=== PATIENT | female | born 1945 | race American Indian/Alaskan Native ===

== ENCOUNTER 2018-12-13 21:58 | Inpatient (IN) | payer MEDICARE ==
[2018-12-13 23:55] LABS: Basophils # (Auto) 0.1 K/mm3 (0.0-0.1); Basophils % (Auto) 0.7 % (0.0-1.8); Eosinophils % (Auto) 0.4 % (0.0-4.3); Hematocrit 43.2 % (30.3-42.9); Hemoglobin 13.8 gm/dl (10.1-14.3); Lymphocytes # (Auto) 1.7 K/mm3 (1.2-5.4); Lymphocytes % (Auto) 18.8 % (13.4-35.0); Mean Corpuscular HGB Conc 32 % (30-34); Mean Corpuscular Volume 84 fl (79-97); Monocytes # (Auto) 0.7 K/mm3 (0.0-0.8); Monocytes % (Auto) 7.7 % (0.0-7.3); Platelet Count 272 K/mm3 (140-440); Red Blood Count 5.18 M/mm3 (3.65-5.03); Red Cell Distribution Width 16.9 % (13.2-15.2)
[2018-12-14 00:10] LABS: BUN/Creatinine Ratio 13; Blood Urea Nitrogen 14 mg/dL (7-17); Hemolysis Index 15
[2018-12-14] MEDS ORDERED: NITROSTAT SL PRN (01:16)
[2018-12-14] MEDS ORDERED: ASPIRIN PO ONE (01:16)
[2018-12-14] MEDS ORDERED: CATAPRES PO ONE (01:16)
--- NOTE | 2018-12-14 02:47 | XRay Report ---
PROCEDURE: XR CHEST 1V AP TECHNIQUE: Chest radiograph single view. HISTORY: chest pain COMPARISONS: None . FINDINGS: Heart: Normal. Mediastinum/Vessels: Normal. Lungs/Pleural space: Normal. Bony thorax: No acute osseous abnormality. Life support devices: None. IMPRESSION: No acute cardiopulmonary abnormality. This document is electronically signed by Juan R Berry MD., Dec 14 2018 02:45:23 AM ET
--- NOTE | 2018-12-14 03:18 | Emergency Department Report ---
ED Chest Pain HPI - General Chief Complaint: Dizziness Stated Complaint: BLOOD PRESSURE HIGH Time Seen by Provider: 12/14/18 01:08 Source: patient Mode of arrival: Ambulatory Limitations: No Limitations - History of Present Illness Initial Comments: Patient is a 73-year-old [place] female past medical history of hypertension and diabetes who's complaining of chest discomfort. Patient states that late yesterday she began having some chest pressure is worse when she is exerting herself. She has some shortness of breath and dizziness associated with the chest pressure. States it does come and go. Patient states she had a stress test earlier this year but has no stents and she has never had a cardiac cath. Patient's sugar blood pressure was elevated and she asked for her to bring her to the hospital. - Related Data Home Medications Medication Instructions Recorded Confirmed Last Taken Verapamil HCl 360 tab PO DAILY 10/08/14 06/23/18 08/31/15 Aspirin 81 mg PO DAILY 06/23/18 06/23/18 Unknown Benicar HCT 40-12.5 mg 1 tab PO DAILY 06/23/18 06/23/18 Unknown Ondansetron TAB 4 mg PO Q8H PRN 06/23/18 06/23/18 Unknown Sitagliptin Phosphate [Januvia] 50 mg PO DAILY 06/23/18 06/23/18 Unknown Zonisamide 100 mg PO BID 06/23/18 06/23/18 Unknown Previous Rx's Medication Instructions Recorded Last Taken Type levETIRAcetam [Keppra TAB] 1,000 mg PO BID #60 tablet NS 04/04/14 08/31/15 Rx AtorvaSTATin [Lipitor] 20 mg PO QHS #30 tablet 06/25/18 Unknown Rx clonazePAM [KlonoPIN] 0.5 mg PO TID #90 tablet 06/25/18 Unknown Rx Allergies Allergy/AdvReac Type Severity Reaction Status Date / Time acetaminophen [From Tylenol] Allergy Unknown Verified 08/31/15 19:31 codeine Allergy Unknown Verified 08/31/15 19:31 metronidazole Allergy Unknown Verified 08/31/15 19:31 Penicillins Allergy Unknown Verified 08/31/15 19:31 Heart Score - HEART Score History: Moderately suspicious EKG: Non-specific Age: > 65 Risk factors: 1-2 risk factors Troponin: < normal limit HEART Score: 5 ED Review of Systems ROS: Stated complaint: BLOOD PRESSURE HIGH Other details as noted in HPI Comment: All other systems reviewed and negative ED Past Medical Hx - Past Medical History Hx Hypertension: Yes Hx Diabetes: Yes Hx Seizures: Yes Hx Asthma: No Hx COPD: No Hx HIV: No Additional medical history: vagus nerve stimulator. Hearing impaired - Surgical History Additional Surgical History: tubal ligation. Craniotomy - Social History Smoking Status: Never Smoker Substance Use Type: None - Medications Home Medications: Home Medications Medication Instructions Recorded Confirmed Last Taken Type levETIRAcetam [Keppra TAB] 1,000 mg PO BID #60 tablet NS 04/04/14 06/23/18 08/31/15 Rx Verapamil HCl 360 tab PO DAILY 10/08/14 06/23/18 08/31/15 History Aspirin 81 mg PO DAILY 06/23/18 06/23/18 Unknown History Benicar HCT 40-12.5 mg 1 tab PO DAILY 06/23/18 06/23/18 Unknown History Ondansetron TAB 4 mg PO Q8H PRN 06/23/18 06/23/18 Unknown History Sitagliptin Phosphate [Januvia] 50 mg PO DAILY 06/23/18 06/23/18 Unknown History Zonisamide 100 mg PO BID 06/23/18 06/23/18 Unknown History AtorvaSTATin [Lipitor] 20 mg PO QHS #30 tablet 06/25/18 Unknown Rx clonazePAM [KlonoPIN] 0.5 mg PO TID #90 tablet 06/25/18 Unknown Rx ED Physical Exam - General Limitations: No Limitations General appearance: alert, in no apparent distress - Head Head exam: Present: atraumatic, normocephalic - Eye Eye exam: Present: normal appearance - ENT ENT exam: Present: mucous membranes moist - Neck Neck exam: Present: normal inspection - Respiratory Respiratory exam: Present: normal lung sounds bilaterally. Absent: respiratory distress, wheezes, rales, rhonchi - Cardiovascular Cardiovascular Exam: Present: regular rate, normal rhythm. Absent: systolic murmur, diastolic murmur, rubs, gallop - GI/Abdominal GI/Abdominal exam: Present: soft, normal bowel sounds. Absent: distended, tenderness, guarding, rebound, rigid - Extremities Exam Extremities exam: Present: normal inspection - Back Exam Back exam: Present: normal inspection - Neurological Exam Neurological exam: Present: alert, oriented X3 - Psychiatric Psychiatric exam: Present: normal affect, normal mood - Skin Skin exam: Present: warm, dry, intact, normal color. Absent: rash ED Course Vital Signs 12/13/18 12/13/18 12/14/18 22:02 22:04 01:28 Temperature 98.5 F 98.5 F 97.9 F Pulse Rate 92 H 91 H 69 Respiratory 18 18 16 Rate Blood Pressure 194/105 166/87 Blood Pressure 194/105 [Left] O2 Sat by Pulse 98 98 100 Oximetry 12/14/18 12/14/18 12/14/18 01:31 02:00 02:31 Temperature Pulse Rate 64 62 60 Respiratory 19 18 20 Rate Blood Pressure 166/87 144/77 144/77 Blood Pressure [Left] O2 Sat by Pulse 100 98 98 Oximetry ED Medical Decision Making - Lab Data Result diagrams: 12/13/18 23:25 12/13/18 23:25 Labs 12/13/18 12/13/18 23:25 23:25 WBC 8.9 RBC 5.18 H Hgb 13.8 Hct 43.2 H MCV 84 MCH 27 L MCHC 32 RDW 16.9 H Plt Count 272 Lymph % (Auto) 18.8 [place] % (Auto) 7.7 H Eos % (Auto) 0.4 Baso % (Auto) 0.7 Lymph # 1.7 [place] # 0.7 Eos # 0.0 Baso # 0.1 Seg Neutrophils % 72.4 H Seg Neutrophils # 6.5 Sodium 140 Potassium 4.0 Chloride 102.1 Carbon Dioxide 24 Anion Gap 18 BUN 14 Creatinine 1.1 Estimated GFR 59 BUN/Creatinine Ratio 13 Glucose 181 H Calcium 9.0 Troponin T < 0.010 - EKG Data -: EKG Interpreted by Sc EKG shows normal: sinus rhythm, axis, intervals, QRS complexes, ST-T waves Rate: normal - EKG Data Interpretation: normal EKG - Radiology Data Radiology results: report reviewed - Medical Decision Making Patient is a 73-year-old [place] female presenting with chest pain. Patient has a elevated blood pressures well. Blood pressure was treated with Catapres and the patient's blood pressure did respond well. At time of admission patient's systolic blood pressure was 150s. Patient's chest pain-free at this time. Patient does have a harsh score 5 and the patient. Will be admitted to the hospitalist Critical Care Time: Yes (30) Critical care attestation.: If time is entered above; I have spent that time in minutes in the direct care of this critically ill patient, excluding procedure time. ED Disposition Clinical Impression: Hypertensive urgency, Chest pain Disposition: OP ADMIT IP TO THIS HOSP Is pt being admited?: Yes Does the pt Need Aspirin: No Condition: Stable Instructions: Chest Pain (ED) Referrals: QUINTIN EM MD [Primary Care Provider] - 3-5 Days Time of Disposition: 03:20
[2018-12-14] MEDS ORDERED: TYLENOL PO PRN (04:00)
[2018-12-14] MEDS ORDERED: PERCOCET 5/325 PO PRN (04:00)
[2018-12-14] MEDS ORDERED: SODIUM CHLORIDE FLUSH SYRINGE 10 ML IV PRN (04:00)
[2018-12-14] MEDS ORDERED: D50W (25GM) Syringe IV PRN (04:00)
[2018-12-14] MEDS ORDERED: ZOFRAN IV PRN (04:00)
--- NOTE | 2018-12-14 04:00 | History and Physical Report ---
History of Present Illness Date of examination: 12/14/18 History of present illness: 73-year-old man with a history of coronary artery disease, diabetes, seizure, close to the emergency room with complaints of chest pain located in the epigastric area that started yesterday. She describes a dull pain, intermitten 2 to 4 minutes, intensity 5/10, radiating to the right side of the neck, cannot identify exacerbating or relieving factors. Denies nausea vomiting, shortness breath, diaphoresis or palpitation Review of systems Constitutional: no weight loss, chills, fever Ears, eyes, nose, mouth and throat: no nasal congestion, no nasal discharge, no sinus pressure, no vision change, no red eye. Neck: No neck pain or rigidity. Cardiovascular: no palpitations, chest pain Respiratory: no cough, shortness of breath Gastrointestinal: no hematochezia, abdominal pain Genitourinary : no frequency , no hematuria Musculoskeletal: no joint swelling or muscle ache Integumentary: no rash, no pruritis Neurological: no parathesias, no focal weakness Endocrine: no cold or heat intolerance, no polyuria or polydipsia Hematologic/Lymphatic: no easy bruising, no easy bleeding, no gland swelling Allergic/Immunologic: no urticaria, no angioedema. PAST MEDICAL HISTORY:coronary artery disease, diabetes, seizure, CVA with right hemiparesis PAST SURGICAL HISTORY: Right leg SOCIAL HISTORY: Denies alcohol, drugs, tobacco FAMILY HISTORY: Hypertension Medications and Allergies Allergies Allergy/AdvReac Type Severity Reaction Status Date / Time acetaminophen [From Tylenol] Allergy Unknown Verified 08/31/15 19:31 codeine Allergy Unknown Verified 08/31/15 19:31 metronidazole Allergy Unknown Verified 08/31/15 19:31 Penicillins Allergy Unknown Verified 08/31/15 19:31 Home Medications Medication Instructions Recorded Confirmed Last Taken Type levETIRAcetam [Keppra TAB] 1,000 mg PO BID #60 tablet NS 04/04/14 12/14/18 08/31/15 Rx Verapamil HCl 360 tab PO DAILY 10/08/14 12/14/18 08/31/15 History Aspirin 81 mg PO DAILY 06/23/18 12/14/18 Unknown History Zonisamide 100 mg PO BID 06/23/18 12/14/18 Unknown History clonazePAM [KlonoPIN] 0.5 mg PO TID #90 tablet 06/25/18 12/14/18 Unknown Rx Citalopram [celeXA] 20 mg PO QDAY 12/14/18 12/14/18 Unknown History Dapagliflozin Propanediol [Farxiga] 1 tab PO DAILY 12/14/18 12/14/18 Unknown History Telmisartan 40 mg PO DAILY 12/14/18 12/14/18 Unknown History Active Meds: Active Medications Nitroglycerin (Nitrostat) 0.4 mg SL .Q5MIN PRN PRN Reason: Chest Pain Exam - Physical Exam Narrative exam: General Apperance: The patient lying in bed, breathing comfortable HEENT: Normocephalic, atraumatic. Pupils equally round and reactive to light, EOMI, no sclericterus or JVD or thyromegaly or nodule. , no carotid bruit, mu cous membranes moist, no exudate or erythema Heart: S1-S2, regular is rhythm Lungs: Clear to auscultation bilaterally, breathing comfortable Abdomen: Positive bowel sounds, soft, nontender, nondistended, no organomegaly Extremities: No edema cyanosis clubbing Skin: no rash, nodule, warm and dry Neuro: cranial nerves 2-12 intact, speech is fluent,sensory intact - Constitutional Vitals: Temp Pulse Resp BP Pulse Ox 97.9 F 60 20 144/77 98 12/14/18 01:28 12/14/18 02:31 12/14/18 02:31 12/14/18 02:31 12/14/18 02:31 Results - Labs CBC & Chem 7: 12/14/18 04:16 12/14/18 04:16 Labs: Abnormal lab results 12/13/18 12/13/18 Range/Units 23:25 23:25 RBC 5.18 H (3.65-5.03) M/mm3 Hct 43.2 H (30.3-42.9) % MCH 27 L (28-32) pg RDW 16.9 H (13.2-15.2) % Barry % (Auto) 7.7 H (0.0-7.3) % Seg Neutrophils % 72.4 H (40.0-70.0) % Glucose 181 H (65-100) mg/dL - Imaging and Cardiology EKG: image reviewed Chest x-ray: report reviewed Assessment and Plan Assessment Unstable angina Coronary artery disease Diabetes Seizure History of CVA Plan Admit to medicine Check enzymes, stress test Continue her present outpatient medications Check fingersticks and initiate insulin sliding scale DVT prophylaxis
[2018-12-14 04:42] LABS: Basophils # (Auto) 0.1 K/mm3 (0.0-0.1); Eosinophils # (Auto) 0.1 K/mm3 (0.0-0.4); Eosinophils % (Auto) 0.6 % (0.0-4.3); Hemoglobin 13.1 gm/dl (10.1-14.3); Lymphocytes # (Auto) 2.2 K/mm3 (1.2-5.4); Lymphocytes % (Auto) 25.7 % (13.4-35.0); Mean Corpuscular HGB Conc 33 % (30-34); Mean Corpuscular Volume 82 fl (79-97); Monocytes # (Auto) 0.8 K/mm3 (0.0-0.8); Platelet Count 250 K/mm3 (140-440); Red Blood Count 4.87 M/mm3 (3.65-5.03); Red Cell Distribution Width 16.9 % (13.2-15.2)
[2018-12-14 04:56] LABS: BUN/Creatinine Ratio 13; Blood Urea Nitrogen 13 mg/dL (7-17); Hemolysis Index 15
[2018-12-14 06:59] LABS: Creatine Kinase MB < 1.0 ng/mL (0.0-4.0)
[2018-12-14] MEDS: HumaLOG SUB-Q SCH ×4 (08:35→21:53)
[2018-12-14] MEDS ORDERED: DAPAGLIFLOZIN PROPANEDIOL PO SCH (10:00)
--- NOTE | 2018-12-14 10:31 | Event Note ---
Date: 12/14/18 73-year-old man with a history of coronary artery disease, diabetes, seizure, close to the emergency room with complaints of chest pain located in the epigastric area that started yesterday. plan for stress test tomorrow.
[2018-12-14] MEDS: CALAN SR PO SCH (10:41)
[2018-12-14] MEDS: COZAAR PO SCH (10:41)
[2018-12-14] MEDS: KEPPRA PO SCH ×2 (10:41→21:53)
[2018-12-14] MEDS: celeXA PO SCH (10:41)
[2018-12-14] MEDS: HALFPRIN EC PO SCH (10:42)
[2018-12-14] MEDS: LOVENOX SUB-Q SCH (10:42)
[2018-12-14 12:47] LABS: Creatine Kinase MB < 1.0 ng/mL (0.0-4.0)
[2018-12-14] MEDS: SODIUM CHLORIDE FLUSH SYRINGE 10 ML IV SCH ×2 (21:54)
[2018-12-15] MEDS: HumaLOG SUB-Q SCH ×2 (08:02→11:48)
[2018-12-15] MEDS: CALAN SR PO SCH (09:30)
[2018-12-15] MEDS: KEPPRA PO SCH (09:31)
[2018-12-15] MEDS: COZAAR PO SCH (09:31)
[2018-12-15] MEDS: HALFPRIN EC PO SCH (09:31)
[2018-12-15] MEDS: LOVENOX SUB-Q SCH (09:31)
[2018-12-15] MEDS: celeXA PO SCH (09:31)
[2018-12-15] MEDS: SODIUM CHLORIDE FLUSH SYRINGE 10 ML IV SCH (09:33)
[2018-12-15] MEDS ORDERED: LEXISCAN IV ONE (11:31)
[2018-12-15 12:34] VITALS: BP 150/78
--- NOTE | 2018-12-15 15:07 | Discharge Summary ---
Providers - Providers Date of Admission: 12/14/18 04:00 Date of discharge: 12/15/18 Attending physician: CINTHYA HERBERT [facility] Reason for admission: chest pain Condition: Stable Pertinent studies: CXR Stress test Hospital course: 73-year-old man with a history of coronary artery disease, diabetes, seizure, presented to the emergency room with complaints of chest pain located in the epigastric area that started a day ago. CE in the ER normal, CXR showed no infiltrates. Stress test today was normal, patient was then discharged home in stable condition. Discharge diagnosis: Chest pain, likely GERD, stress test was normal Coronary artery disease HTN, stable Seizure disorder History of CVA Disposition: TO HOME OR SELFCARE Time spent for discharge: 34 minutes Core Measure Documentation - Palliative Care Palliative Care/ Comfort Measures: Not Applicable - Core Measures Any of the following diagnoses?: none Exam - Constitutional Vitals: Temp Pulse Resp BP Pulse Ox 98.5 F 58 L 19 150/78 98 12/15/18 07:10 12/15/18 11:00 12/15/18 10:00 12/15/18 11:59 12/15/18 10:00 General appearance: Present: no acute distress, other (elderly AAF) - EENT Eyes: Present: PERRL ENT: hearing intact, clear oral mucosa - Neck Neck: Present: supple, normal ROM - Respiratory Respiratory effort: normal Respiratory: bilateral: CTA - Cardiovascular Heart Sounds: Present: S1 & S2. Absent: rub, click - Extremities Extremities: pulses symmetrical, No edema Peripheral Pulses: within normal limits - Abdominal General gastrointestinal: Present: soft, non-tender, non-distended, normal bowel sounds - Integumentary Integumentary: Present: clear, warm, dry - Musculoskeletal Musculoskeletal: gait normal, strength equal bilaterally - Psychiatric Psychiatric: appropriate mood/affect, intact judgment & insight - Neurologic Neurologic: CNII-XII intact, moves all extremities Plan Activity: advance as tolerated Weight Bearing Status: Weight Bear as Tolerated Diet: low fat Follow up with: QUINTIN EM MD [Primary Care Provider] - 3-5 Days ALFREDO GUZMAN MD [Staff Physician] - 7 Days Prescriptions: AtorvaSTATin [Lipitor] 20 mg PO QHS #30 tab Pantoprazole [Protonix] 40 mg PO QDAY #30 tablet
--- NOTE | 2018-12-16 05:55 | Treadmill Report ---
THALLIUM STRESS TEST LEFT VENTRICLE: Left ventricular chamber size is within normal spread. Perfusion study demonstrates mild breast attenuation artifact, otherwise, homogeneous uptake of the tracer in all segments, no significant defects identified. Gated analysis demonstrates normal left ventricular systolic function, ejection fraction of 65%. CONCLUSION: Normal myocardial perfusion study. JOB# [id number] CA/NTS
== END 2018-12-15 16:28 | disposition home or self-care (01) | DRG 392 ==
LOC: ED 21:58 → 4A 12-14 04:00
PROVIDERS: ADMIT Internal Medicine; ATTEND Internal Medicine
DX: K21.9 Gastro-esophageal reflux disease without esophagitis (principal); I25.110 Atherosclerotic heart disease of native coronary artery with unstable angina pectoris; I69.351 Hemiplegia and hemiparesis following cerebral infarction affecting right dominant side; I16.0 Hypertensive urgency; G40.909 Epilepsy, unspecified, not intractable, without status epilepticus; I10 Essential (primary) hypertension; Z79.899 Other long term (current) drug therapy; Z79.82 Long term (current) use of aspirin; Z88.5 Allergy status to narcotic agent; Z88.0 Allergy status to penicillin; Z98.51 Tubal ligation status; Z82.49 Family history of ischemic heart disease and other diseases of the circulatory system
CPT/HCPCS: 36415; 71045; 78452; 80048; 82550; 82553; 82962; 84484; 85025; 93005; 93010; 93017; G0378; A9502; J1650; J2785

== ENCOUNTER 2019-05-10 11:31 | Emergency (ER) | payer MEDICARE ==
[2019-05-10] MEDS ORDERED: ASPIRIN 325 MG TAB PO ONE (11:40)
--- NOTE | 2019-05-10 12:08 | Emergency Department Report ---
ED General Adult HPI - General Chief complaint: Chest Pain Stated complaint: CHEST PAIN/LEGS SWELLING Time Seen by Provider: 05/10/19 11:47 Source: patient Mode of arrival: Ambulatory Limitations: No Limitations - History of Present Illness Initial comments: 73 yo F w/ diabetes, seizure disorder presents to ED with multiple written complaints. These include: abdominal pain, feeling tired, chest tightness, shortness of breath, feeling gassy, constipation, painful tongue, blurred vision, vaginal burning, leg swelling and cramps in toes. Triage note states that patient reports chest and leg pain x2 days and that she is spitting up blood, however, pt denies any cough, nausea, or vomiting when I ask. Patient states her main complaint is the abdominal pain and constipation. -: week(s) (1) Consistency: intermittent - Related Data Home Medications Medication Instructions Recorded Confirmed Last Taken Verapamil HCl 360 tab PO DAILY 10/08/14 12/14/18 08/31/15 Aspirin 81 mg PO DAILY 06/23/18 12/14/18 Unknown Zonisamide 100 mg PO BID 06/23/18 12/14/18 Unknown Citalopram [Celexa] 20 mg PO QDAY 12/14/18 12/14/18 Unknown Dapagliflozin Propanediol [Farxiga] 1 tab PO DAILY 12/14/18 12/14/18 Unknown Telmisartan 40 mg PO DAILY 12/14/18 12/14/18 Unknown Previous Rx's Medication Instructions Recorded Last Taken Type levETIRAcetam [Keppra TAB] 1,000 mg PO BID #60 tablet NS 04/04/14 08/31/15 Rx clonazePAM [KlonoPIN] 0.5 mg PO TID #90 tablet 06/25/18 Unknown Rx AtorvaSTATin [Lipitor] 20 mg PO QHS #30 tab 12/15/18 Unknown Rx Pantoprazole [Protonix] 40 mg PO QDAY #30 tablet 12/15/18 Unknown Rx Dicyclomine [Bentyl] 20 mg PO QID PRN #20 tablet 05/10/19 Unknown Rx Docusate Sodium [Colace] 100 mg PO BID PRN #30 capsule 05/10/19 Unknown Rx Allergies Allergy/AdvReac Type Severity Reaction Status Date / Time acetaminophen [From Tylenol] Allergy Unknown Unknown Verified 05/10/19 12:21 codeine Allergy Unknown Unknown Verified 05/10/19 12:21 metronidazole Allergy Unknown Unknown Verified 05/10/19 12:21 Penicillins Allergy Unknown Unknown Verified 05/10/19 12:21 ED Review of Systems ROS: Stated complaint: CHEST PAIN/LEGS SWELLING Other details as noted in HPI Comment: All other systems reviewed and negative Constitutional: denies: fever Eyes: vision change ENT: other (reports tongue pain) Respiratory: shortness of breath. denies: cough Cardiovascular: chest pain Gastrointestinal: abdominal pain, constipation. denies: nausea, vomiting, diarr hea Musculoskeletal: other (reports bilateral leg swelling) ED Past Medical Hx - Past Medical History Previous Medical History?: Yes Hx Hypertension: Yes Hx Diabetes: Yes Hx Seizures: Yes Hx Asthma: No Hx COPD: No Hx HIV: No Additional medical history: vagus nerve stimulator. Hearing impaired - Surgical History Past Surgical History?: Yes Additional Surgical History: tubal ligation. Craniotomy - Social History Smoking Status: Never Smoker Substance Use Type: Prescribed - Medications Home Medications: Home Medications Medication Instructions Recorded Confirmed Last Taken Type levETIRAcetam [Keppra TAB] 1,000 mg PO BID #60 tablet NS 04/04/14 12/14/18 08/31/15 Rx Verapamil HCl 360 tab PO DAILY 10/08/14 12/14/18 08/31/15 History Aspirin 81 mg PO DAILY 06/23/18 12/14/18 Unknown History Zonisamide 100 mg PO BID 06/23/18 12/14/18 Unknown History clonazePAM [KlonoPIN] 0.5 mg PO TID #90 tablet 06/25/18 12/14/18 Unknown Rx Citalopram [Celexa] 20 mg PO QDAY 12/14/18 12/14/18 Unknown History Dapagliflozin Propanediol [Farxiga] 1 tab PO DAILY 12/14/18 12/14/18 Unknown History Telmisartan 40 mg PO DAILY 12/14/18 12/14/18 Unknown History AtorvaSTATin [Lipitor] 20 mg PO QHS #30 tab 12/15/18 Unknown Rx Pantoprazole [Protonix] 40 mg PO QDAY #30 tablet 12/15/18 Unknown Rx Dicyclomine [Bentyl] 20 mg PO QID PRN #20 tablet 05/10/19 Unknown Rx Docusate Sodium [Colace] 100 mg PO BID PRN #30 capsule 05/10/19 Unknown Rx ED Physical Exam - General Limitations: No Limitations General appearance: alert, in no apparent distress - Head Head exam: Present: atraumatic, normocephalic - Eye Eye exam: Present: normal appearance, EOMI, other (able to see colors and fingers) - ENT ENT exam: Present: mucous membranes moist - Neck Neck exam: Present: normal inspection - Respiratory Respiratory exam: Present: normal lung sounds bilaterally. Absent: respiratory distress - Cardiovascular Cardiovascular Exam: Present: regular rate, normal rhythm - GI/Abdominal GI/Abdominal exam: Present: soft, tenderness (mild epigastric tenderness). Absent: distended - Extremities Exam Extremities exam: Present: normal inspection. Absent: pedal edema (no swelling present on exam), calf tenderness - Neurological Exam Neurological exam: Present: alert - Psychiatric Psychiatric exam: Present: normal affect, normal mood - Skin Skin exam: Present: warm, dry, intact, normal color ED Course Vital Signs 05/10/19 05/10/19 11:35 12:30 Temperature 98.8 F Pulse Rate 90 65 Respiratory 18 Rate Blood Pressure 189/101 149/76 O2 Sat by Pulse 98 Oximetry ED Medical Decision Making - Lab Data Result diagrams: 05/10/19 11:49 05/10/19 11:49 - EKG Data -: EKG Interpreted by Mn EKG shows normal: sinus rhythm, axis, QRS complexes - EKG Data When compared to previous EKG there are: no significant change Interpretation: other (prolonged QT, anterolateral T wave inversions) - Radiology Data Radiology results: report reviewed, image reviewed - Medical Decision Making 73-year-old female with multiple complaints including chest tightness and shortness of breath. EKG with anterolateral T-wave inversions is unchanged from previous. Troponin is normal. Patient underwent a stress test pain December 2018 which was normal. Chest x-ray normal. CTA chest was ordered due to elevated d- dimer, no evidence of PE or any other abnormalities. Patient also reported abdominal pain and constipation. Labs are unremarkable, no elevation in WBCs, LFTs and lipase are all normal. CT abdomen and pelvis shows no acute abnormalities. UA negative for any UTI. Patient has been stable and comfortable, vital signs are normal. Patient is in no distress at all. Will discharge at this time. Outpatient follow-up advised. Return precautions given. - Differential Diagnosis ACS, PE, pneumonia, pancreatitis, bowel obstruction, UTI Critical care attestation.: If time is entered above; I have spent that time in minutes in the direct care of this critically ill patient, excluding procedure time. ED Disposition Clinical Impression: Abdominal pain, Chest pain, Constipation Disposition: TO HOME OR SELFCARE Is pt being admited?: No Condition: Stable Instructions: Abdominal Pain (ED), Constipation (ED), High Fiber Diet (ED) Prescriptions: Dicyclomine [Bentyl] 20 mg PO QID PRN #20 tablet PRN Reason: abdominal pain Docusate Sodium [Colace] 100 mg PO BID PRN #30 capsule PRN Reason: Constipation Time of Disposition: 15:09
[2019-05-10 12:09] LABS: Basophils # (Auto) 0.1 K/mm3 (0.0-0.1); Basophils % (Auto) 0.8 % (0.0-1.8); Eosinophils % (Auto) 0.3 % (0.0-4.3); Hematocrit 43.2 % (30.3-42.9); Hemoglobin 14.4 gm/dl (10.1-14.3); Lymphocytes # (Auto) 1.4 K/mm3 (1.2-5.4); Lymphocytes % (Auto) 17.6 % (13.4-35.0); Mean Corpuscular HGB Conc 33 % (30-34); Mean Corpuscular Volume 86 fl (79-97); Monocytes # (Auto) 0.7 K/mm3 (0.0-0.8); Platelet Count 226 K/mm3 (140-440); Red Blood Count 5.04 M/mm3 (3.65-5.03); Red Cell Distribution Width 15.5 % (13.2-15.2)
[2019-05-10] MEDS ORDERED: cloNIDine 0.2 MG TAB PO ONE (12:15)
--- NOTE | 2019-05-10 12:18 | XRay Report ---
CHEST 1 VIEW 11:55 AM INDICATION / CLINICAL INFORMATION: Chest and bilateral leg pain for 2 days. Spitting up blood. Fatigue. COMPARISON: 12/14/2018. FINDINGS: SUPPORT DEVICES: There is a generator overlying the left chest with thin leads extending superiorly t o the upper thoracic region on the left. This may represent a vagus nerve stimulator. HEART / MEDIASTINUM: The heart size and pulmonary vasculature are normal. The aorta is normal in [place] jacquelyn. LUNGS / PLEURA: No significant pulmonary or pleural abnormality. No pneumothorax. ADDITIONAL FINDINGS: No significant additional findings. IMPRESSION: No acute abnormality or significant change. Signer Name: Estuardo Tomlinson MD Signed: 05/10/2019 12:13 PM Workstation Name: [id number]
[2019-05-10 12:21] LABS: INR 1.08 (0.87-1.13)
[2019-05-10 12:32] LABS: BUN/Creatinine Ratio 14; Blood Urea Nitrogen 14 mg/dL (7-17); Calcium 9.1 mg/dL (8.4-10.2); Hemolysis Index 9
[2019-05-10 12:48] LABS: Bilirubin,Urine NEG (Negative); Blood,Urine NEG (Negative); Color,Urine Yellow (Yellow); Mucus,Urine FEW /HPF; Protein,Urine <15 mg/dL mg/dL (Negative); Urobilinogen,Urine < 2.0 mg/dL (<2.0)
[2019-05-10 12:51] LABS: Partial Thromboplastin Time 27.7 Sec. (24.2-36.6)
[2019-05-10 12:51] LABS: Alanine Aminotransferase 6 units/L (7-56)
[2019-05-10 13:05] LABS: Bilirubin,Direct < 0.2 mg/dL (0-0.2)
--- NOTE | 2019-05-10 14:55 | Cat Scan Report ---
CTA CHEST WITH IV CONTRAST INDICATION: chest pain, elevated d-dimer. TECHNIQUE: Axial CT images were obtained through the chest after injection of 100 mL Omnipaque 350 IV contrast. 3 plane MIP reconstructions were produced. All CT scans at this location are performed using CT dose reduction for ALARA by means of automated exposure control. COMPARISON: One view of the chest from earlier today. FINDINGS: PULMONARY ARTERIES: Well-opacified without visualization of thromboemboli. AORTA AND ARTERIES: The aorta and great vessels are patent and normal in caliber with mild aortic and coronary atherosclerosis. MEDIASTINUM: The thyroid gland is unremarkable. The trachea and main bronchi are patent and normal in caliber. No mass or lymphadenopathy. Normal heart size without a pericardial effusion. A vagal nerve stimulator appears unremarkable. LUNGS: No suspicious consolidation, nodule or mass. No pneumothorax or pleural effusion. ADDITIONAL FINDINGS: None. UPPER ABDOMEN: No acute findings. BONES: No acute abnormality. There are degenerative changes of the shoulders and spine. IMPRESSION: 1. No CT evidence for pulmonary embolism. 2. No acute findings. 3. Additional findings as above. Signer Name: Dennys Damico MD Signed: 05/10/2019 2:50 PM Workstation Name: [id number]
--- NOTE | 2019-05-10 14:58 | Cat Scan Report ---
CT ABDOMEN AND PELVIS WITH CONTRAST INDICATION: Unspecified abdominal pain. Constipation. COMPARISON: No relevant prior imaging study available. TECHNIQUE: Axial, coronal and sagittal CT imaging of the abdomen and pelvis was performed after inje ction of 100 mL Omnipaque [address] scans at this location are performed using CT dose re duction for ALARA by means of automated exposure control. FINDINGS: LOWER CHEST: No significant abnormality. LIVER: No significant abnormality. BILIARY: Prior cholecystectomy. No significant abnormality. PANCREAS: No significant abnormality. SPLEEN: No significant abnormality. ADRENALS: No significant abnormality. KIDNEYS AND URETERS: A simple appearing right lower renal pole cyst measures 1.6 cm. No additional si gnificant abnormality. GI TRACT: No significant abnormality of the stomach, small bowel or colon. Unremarkable appendix. PERITONEUM: No free fluid. No free air. No fluid collection. LYMPH NODES: No significant adenopathy. VASCULATURE: The aorta is normal in caliber with mild aortoiliac atherosclerosis. URINARY BLADDER: No significant abnormality. REPRODUCTIVE ORGANS: No significant abnormality. ADDITIONAL FINDINGS: None. SKELETAL SYSTEM: No acute abnormality. Degenerative changes are noted throughout the spine and pelvis . IMPRESSION: 1. No acute abnormality of the abdomen or pelvis. 2. Additional findings as above. Signer Name: Dennys Damico MD Signed: 05/10/2019 2:54 PM Workstation Name: [email or web address]
[2019-05-10 15:27] VITALS: BP 122/65
== END 2019-05-10 15:46 | disposition home or self-care (01) ==
LOC: ED 11:31
DX: K59.00 Constipation, unspecified (principal); I10 Essential (primary) hypertension; E11.9 Type 2 diabetes mellitus without complications; R07.89 Other chest pain; Z88.0 Allergy status to penicillin; Z88.5 Allergy status to narcotic agent; Z79.82 Long term (current) use of aspirin; Z79.899 Other long term (current) drug therapy; Z98.51 Tubal ligation status
CPT/HCPCS: 36415; 71045; 71275; 74177; 80048; 80076; 81001; 83690; 83880; 84484; 85025; 85379; 85610; 85730; 93005; 93010; 99285; Q9967

== ENCOUNTER 2019-05-16 03:57 | Emergency (ER) | payer MEDICARE ==
[2019-05-16] MEDS ORDERED: ASPIRIN 325 MG TAB PO ONE (04:06)
[2019-05-16] MEDS ORDERED: FAMOTIDINE 20 MG/2 ML INJ IV ONE (04:38)
[2019-05-16] MEDS ORDERED: DICYCLOMINE 20 MG/2 ML INJ IM ONE (04:38)
[2019-05-16] MEDS ORDERED: ONDANSETRON 4 MG/2 ML INJ IV ONE (04:38)
[2019-05-16 05:02] LABS: Basophils # (Auto) 0.1 K/mm3 (0.0-0.1); Basophils % (Auto) 1.1 % (0.0-1.8); Eosinophils % (Auto) 0.6 % (0.0-4.3); Hematocrit 43.4 % (30.3-42.9); Hemoglobin 14.3 gm/dl (10.1-14.3); Lymphocytes # (Auto) 1.4 K/mm3 (1.2-5.4); Lymphocytes % (Auto) 16.3 % (13.4-35.0); Mean Corpuscular HGB Conc 33 % (30-34); Mean Corpuscular Volume 87 fl (79-97); Monocytes # (Auto) 0.7 K/mm3 (0.0-0.8); Monocytes % (Auto) 8.1 % (0.0-7.3); Platelet Count 215 K/mm3 (140-440); Red Blood Count 5.02 M/mm3 (3.65-5.03); Red Cell Distribution Width 15.1 % (13.2-15.2)
[2019-05-16 05:11] VITALS: BP 138/76
--- NOTE | 2019-05-16 05:27 | Emergency Department Report ---
ED General Adult HPI - General Chief complaint: Chest Pain Stated complaint: CHEST PAIN/FOOT SWELLING Time Seen by Provider: 05/16/19 04:28 Source: patient Mode of arrival: Ambulatory Limitations: No Limitations - History of Present Illness Initial comments: Patient is a 73-year-old female who is presenting with chest pain. Patient's chest pain is actually epigastrium. She states she has a tight burning sensation in this region. Patient is here for the second time in a week. I. Patient states that sometimes the pain does radiate up into the chest before most part is located in epigastrium. She states that nothing makes it better and nothing makes it worse and it is random. Patient states she does not have a good bowel movement in over a week. She's has to take stool softeners and oriented to have a bowel movement. Patient also is complaining of some lower extremity edema in her ankles. Patient has a significant workup on 05/10/2019 when she was here for same complaints. D-dimer was elevated at that time and a CT angiogram of chest was negative. - Related Data Home Medications Medication Instructions Recorded Confirmed Last Taken Verapamil HCl 360 tab PO DAILY 10/08/14 12/14/18 08/31/15 Aspirin 81 mg PO DAILY 06/23/18 12/14/18 Unknown Zonisamide 100 mg PO BID 06/23/18 12/14/18 Unknown Citalopram [Celexa] 20 mg PO QDAY 12/14/18 12/14/18 Unknown Dapagliflozin Propanediol [Farxiga] 1 tab PO DAILY 12/14/18 12/14/18 Unknown Telmisartan 40 mg PO DAILY 12/14/18 12/14/18 Unknown Previous Rx's Medication Instructions Recorded Last Taken Type levETIRAcetam [Keppra TAB] 1,000 mg PO BID #60 tablet NS 04/04/14 08/31/15 Rx clonazePAM [KlonoPIN] 0.5 mg PO TID #90 tablet 06/25/18 Unknown Rx AtorvaSTATin [Lipitor] 20 mg PO QHS #30 tab 12/15/18 Unknown Rx Pantoprazole [Protonix] 40 mg PO QDAY #30 tablet 12/15/18 Unknown Rx Dicyclomine [Bentyl] 20 mg PO QID PRN #20 tablet 05/10/19 Unknown Rx Docusate Sodium [Colace] 100 mg PO BID PRN #30 capsule 05/10/19 Unknown Rx Dicyclomine [Bentyl] 10 mg PO QID #10 capsule 05/16/19 Unknown Rx Famotidine [Pepcid] 40 mg PO QHS #10 tablet 05/16/19 Unknown Rx Allergies Allergy/AdvReac Type Severity Reaction Status Date / Time acetaminophen [From Tylenol] Allergy Unknown Unknown Verified 05/10/19 12:21 codeine Allergy Unknown Unknown Verified 05/10/19 12:21 metronidazole Allergy Unknown Unknown Verified 05/10/19 12:21 Penicillins Allergy Unknown Unknown Verified 05/10/19 12:21 ED Review of Systems ROS: Stated complaint: CHEST PAIN/FOOT SWELLING Other details as noted in HPI Comment: All other systems reviewed and negative ED Past Medical Hx - Past Medical History Previous Medical History?: Yes Hx Hypertension: Yes Hx Diabetes: Yes Hx Seizures: Yes Hx Asthma: No Hx COPD: No Hx HIV: No Additional medical history: vagus nerve stimulator. Hearing impaired - Surgical History Past Surgical History?: Yes Additional Surgical History: tubal ligation. Craniotomy - Social History Smoking Status: Never Smoker Substance Use Type: None - Medications Home Medications: Home Medications Medication Instructions Recorded Confirmed Last Taken Type levETIRAcetam [Keppra TAB] 1,000 mg PO BID #60 tablet NS 04/04/14 12/14/18 08/31/15 Rx Verapamil HCl 360 tab PO DAILY 10/08/14 12/14/18 08/31/15 History Aspirin 81 mg PO DAILY 06/23/18 12/14/18 Unknown History Zonisamide 100 mg PO BID 06/23/18 12/14/18 Unknown History clonazePAM [KlonoPIN] 0.5 mg PO TID #90 tablet 06/25/18 12/14/18 Unknown Rx Citalopram [Celexa] 20 mg PO QDAY 12/14/18 12/14/18 Unknown History Dapagliflozin Propanediol [Farxiga] 1 tab PO DAILY 12/14/18 12/14/18 Unknown History Telmisartan 40 mg PO DAILY 12/14/18 12/14/18 Unknown History AtorvaSTATin [Lipitor] 20 mg PO QHS #30 tab 12/15/18 Unknown Rx Pantoprazole [Protonix] 40 mg PO QDAY #30 tablet 12/15/18 Unknown Rx Dicyclomine [Bentyl] 20 mg PO QID PRN #20 tablet 05/10/19 Unknown Rx Docusate Sodium [Colace] 100 mg PO BID PRN #30 capsule 05/10/19 Unknown Rx Dicyclomine [Bentyl] 10 mg PO QID #10 capsule 05/16/19 Unknown Rx Famotidine [Pepcid] 40 mg PO QHS #10 tablet 05/16/19 Unknown Rx ED Physical Exam - General Limitations: No Limitations General appearance: alert, in no apparent distress - Head Head exam: Present: atraumatic, normocephalic - Eye Eye exam: Present: normal appearance, PERRL, EOMI - ENT ENT exam: Present: mucous membranes moist - Neck Neck exam: Present: normal inspection - Respiratory Respiratory exam: Present: normal lung sounds bilaterally. Absent: respiratory distress, wheezes, rales, rhonchi - Cardiovascular Cardiovascular Exam: Present: regular rate, normal rhythm, normal heart sounds. Absent: systolic murmur, diastolic murmur, rubs, gallop - GI/Abdominal GI/Abdominal exam: Present: soft, normal bowel sounds. Absent: distended, tenderness, guarding, rebound - Extremities Exam Extremities exam: Present: normal inspection - Back Exam Back exam: Present: normal inspection - Neurological Exam Neurological exam: Present: alert, oriented X3 - Psychiatric Psychiatric exam: Present: normal affect, normal mood - Skin Skin exam: Present: warm, dry, intact, normal color. Absent: rash ED Course Vital Signs 05/16/19 05/16/19 05/16/19 04:03 04:30 04:44 Temperature 98.7 F 98.4 F Pulse Rate 108 H 81 Respiratory 16 16 20 Rate Blood Pressure 156/105 146/79 O2 Sat by Pulse 98 100 100 Oximetry 05/16/19 05:02 Temperature Pulse Rate 78 Respiratory 20 Rate Blood Pressure 138/76 O2 Sat by Pulse 99 Oximetry ED Medical Decision Making - Lab Data Result diagrams: 05/16/19 04:52 - EKG Data -: EKG Interpreted by [place] EKG shows normal: sinus rhythm, axis, intervals, QRS complexes, ST-T waves Rate: normal - EKG Data Interpretation: normal EKG - Radiology Data Radiology results: image reviewed (x-ray of the chest shows no acute process. KUB shows that the patient has gas throughout the small intestine and colon. No evidence of obstruction. Patient's does have some gaseous distention of her bowels. No air-fluid levels are present.) - Medical Decision Making A 73-year-old female who is presenting with epigastric discomfort. Patient also states she feels that she is constipated and has been taking laxatives. Patient has no formed stool within the bowels. Instructed the patient stopped taking laxatives. Patient to continue with Bentyl also restarted IT since some of her symptoms do resemble GERD. Patient discharged home. Critical care attestation.: If time is entered above; I have spent that time in minutes in the direct care of this critically ill patient, excluding procedure time. ED Disposition Clinical Impression: Gas pain, GERD (gastroesophageal reflux disease) Disposition: TO HOME OR SELFCARE Is pt being admited?: No Does the pt Need Aspirin: No Condition: Stable Instructions: Gas and Bloating (ED), Gastroesophageal Reflux Disease (ED) Referrals: [facility] [Provider Group] - 3-5 Days Time of Disposition: 06:01
[2019-05-16 06:05] LABS: Alanine Aminotransferase 6 units/L (7-56); Albumin 3.7 g/dL (3.9-5); BUN/Creatinine Ratio 10; Blood Urea Nitrogen 10 mg/dL (7-17); Calcium 8.8 mg/dL (8.4-10.2); Hemolysis Index 9
--- NOTE | 2019-05-16 06:44 | XRay Report ---
CHEST 2 VIEWS INDICATION / CLINICAL INFORMATION: Chest Pain. COMPARISON: Chest radiograph 05/10/2019 FINDINGS: SUPPORT DEVICES: Stable generator overlying the left chest with leads extending to the left upper tho racic region. HEART / MEDIASTINUM: No significant abnormality. LUNGS / PLEURA: No significant pulmonary or pleural abnormality. No pneumothorax. ADDITIONAL FINDINGS: No significant additional findings. IMPRESSION: 1. No acute abnormality or significant change. Signer Name: Melina Mcelroy MD Signed: 05/16/2019 6:39 AM Workstation Name: [id number]
--- NOTE | 2019-05-16 07:06 | XRay Report ---
ABDOMEN 1 VIEW INDICATION / CLINICAL INFORMATION: constipation. COMPARISON: CT abdomen pelvis 05/10/2019 FINDINGS: TUBES / LINES: None. BOWEL GAS PATTERN: Nonobstructive bowel gas pattern. FREE AIR / EXTRALUMINAL GAS: None seen. ADDITIONAL FINDINGS: No significant additional findings. IMPRESSION: 1. Nonobstructive bowel gas pattern. Signer Name: Melina Mcelroy MD Signed: 05/16/2019 7:01 AM Workstation Name: [id number]
== END 2019-05-16 06:27 | disposition home or self-care (01) ==
LOC: ED 03:57
DX: K21.9 Gastro-esophageal reflux disease without esophagitis (principal); R14.1 Gas pain; I10 Essential (primary) hypertension; E11.9 Type 2 diabetes mellitus without complications; Z98.51 Tubal ligation status; Z88.5 Allergy status to narcotic agent; Z88.6 Allergy status to analgesic agent; Z88.0 Allergy status to penicillin; Z88.8 Allergy status to other drugs, medicaments and biological substances; Z79.899 Other long term (current) drug therapy
CPT/HCPCS: 36415; 71046; 74018; 80053; 84484; 85025; 93005; 93010; 96372; 96374; 96375; 99284; J0500; J2405

== ENCOUNTER 2019-12-08 11:59 | Emergency (ER) | payer MEDICARE ==
--- NOTE | 2019-12-08 12:27 | Cat Scan Report ---
NONENHANCED CT SCAN OF THE BRAIN: INDICATION: MAIN: CODE STROKE CALL [phone]. Weakness on the left side TECHNIQUE: Routine CT head without contrast. Sagittal and coronal reformatted images were obtained. A ll CT scans at this location are performed using CT dose reduction for ALARA by means of automated ex posure control. COMPARISON: CT scan from 06/23/2018 the reviewed. However, I have reviewed, copy of the report. FINDINGS: BRAIN / INTRACRANIAL CONTENTS: Hemorrhage:No intracranial hemorrhage; no subarachnoid hemorrhage Stroke mimics: No subdural or epidural hematoma or space taking lesion Acute/subacute territorial infarction: Holm-white matter interface: No blurring; normal Insular cortex: Normal Basal ganglia: No findings to suggest acute ischemia Wedge shaped parenchymal low density area: Not present Cortical sulci: Not effaced Lacunar infarctions: No acute/subacute lacunar infarction Vasculopathy: Dense middle cerebral artery sign: Not present Internal carotid artery terminus: Normal Basilar artery:Normal Middle cerebral artery branches in the sylvian fissure (Dot sign): Normal Calcified embolus: Not present ASPECT score: Not applicable Chronic lesions: Right temporal craniotomy along with encephalomalacia in the right temporal lobe see n. White matter: Periventricular low attenuation white matter areas seen probably due to chronic small v essel disease. Craniocervical junction:No significant abnormality Orbits:No significant abnormality Paranasal sinuses/mastoids:No significant abnormality Additional findings: None IMPRESSION: No intracerebral hemorrhage or stroke mimics This exam was performed as part of a code stroke protocol. The exam was completed at [facility] on 12/08/2019 11:15 AM. The exam was reviewed at 11:20 AM Central daylight saving james e and ER physician was notified at 11:22 AM Central daylight saving time. Signer Name: Ifeoma Stanton MD Signed: 12/08/2019 12:22 PM Workstation Name: [id number]
--- NOTE | 2019-12-08 12:48 | Emergency Department Report ---
ED Neuro Deficit HPI - General Chief Complaint: Neuro Symptoms/Deficit Stated Complaint: POSS CVA Time Seen by Provider: 12/08/19 12:12 Source: family, EMS Mode of arrival: Stretcher Limitations: Altered Mental Status - Related Data Home Medications: Home Medications Medication Instructions Recorded Confirmed Last Taken Verapamil HCl 360 tab PO DAILY 10/08/14 12/14/18 08/31/15 Aspirin 81 mg PO DAILY 06/23/18 12/14/18 Unknown Zonisamide 100 mg PO BID 06/23/18 12/14/18 Unknown Citalopram [Celexa] 20 mg PO QDAY 12/14/18 12/14/18 Unknown Dapagliflozin Propanediol [Farxiga] 1 tab PO DAILY 12/14/18 12/14/18 Unknown Telmisartan 40 mg PO DAILY 12/14/18 12/14/18 Unknown Previous Rx's Medication Instructions Recorded Last Taken Type levETIRAcetam [Keppra TAB] 1,000 mg PO BID #60 tablet NS 04/04/14 08/31/15 Rx clonazePAM [KlonoPIN] 0.5 mg PO TID #90 tablet 06/25/18 Unknown Rx AtorvaSTATin [Lipitor] 20 mg PO QHS #30 tab 12/15/18 Unknown Rx Pantoprazole [Protonix] 40 mg PO QDAY #30 tablet 12/15/18 Unknown Rx Dicyclomine [Bentyl] 20 mg PO QID PRN #20 tablet 05/10/19 Unknown Rx Docusate Sodium [Colace] 100 mg PO BID PRN #30 capsule 05/10/19 Unknown Rx Dicyclomine [Bentyl] 10 mg PO QID #10 capsule 05/16/19 Unknown Rx Famotidine [Pepcid] 40 mg PO QHS #10 tablet 05/16/19 Unknown Rx Allergies/Adverse Reactions: Allergies Allergy/AdvReac Type Severity Reaction Status Date / Time acetaminophen [From Tylenol] Allergy Unknown Unknown Verified 05/10/19 12:21 codeine Allergy Unknown Unknown Verified 05/10/19 12:21 metronidazole Allergy Unknown Unknown Verified 05/10/19 12:21 Penicillins Allergy Unknown Unknown Verified 05/10/19 12:21 ED Review of Systems ROS: Stated complaint: POSS CVA Other details as noted in HPI ED Past Medical Hx - Past Medical History Hx Hypertension: Yes Hx Diabetes: Yes Hx Seizures: Yes Hx Asthma: No Hx COPD: No Hx HIV: No Additional medical history: vagus nerve stimulator. Hearing impaired - Surgical History Additional Surgical History: tubal ligation. Craniotomy - Social History Smoking Status: Never Smoker Substance Use Type: None - Medications Home Medications: Home Medications Medication Instructions Recorded Confirmed Last Taken Type levETIRAcetam [Keppra TAB] 1,000 mg PO BID #60 tablet NS 04/04/14 12/14/18 08/31/15 Rx Verapamil HCl 360 tab PO DAILY 10/08/14 12/14/18 08/31/15 History Aspirin 81 mg PO DAILY 06/23/18 12/14/18 Unknown History Zonisamide 100 mg PO BID 06/23/18 12/14/18 Unknown History clonazePAM [KlonoPIN] 0.5 mg PO TID #90 tablet 06/25/18 12/14/18 Unknown Rx Citalopram [Celexa] 20 mg PO QDAY 12/14/18 12/14/18 Unknown History Dapagliflozin Propanediol [Farxiga] 1 tab PO DAILY 12/14/18 12/14/18 Unknown History Telmisartan 40 mg PO DAILY 12/14/18 12/14/18 Unknown History AtorvaSTATin [Lipitor] 20 mg PO QHS #30 tab 12/15/18 Unknown Rx Pantoprazole [Protonix] 40 mg PO QDAY #30 tablet 12/15/18 Unknown Rx Dicyclomine [Bentyl] 20 mg PO QID PRN #20 tablet 05/10/19 Unknown Rx Docusate Sodium [Colace] 100 mg PO BID PRN #30 capsule 05/10/19 Unknown Rx Dicyclomine [Bentyl] 10 mg PO QID #10 capsule 05/16/19 Unknown Rx Famotidine [Pepcid] 40 mg PO QHS #10 tablet 05/16/19 Unknown Rx ED Neuro Physical Exam - General Limitations: Altered Mental Status ED Course - Reevaluation(s) Reevaluation #1: 12/08/19 12:48 [facility] Date of Service: 12/08/2019 11:57:00 Impression: Rule Out Acute Ischemic Stroke r/o encephalopathy r/o seizure with postictal confusion r/o syncope Comments/Sign-Out: Patient with hx of hypertension, seizures, dementia, recent right shoulder injury, 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 Her exam is nonfocal at present time and presentation is likely more consistent with seizure and postictal state rather than CVA. She does not have sensory deficit, no VF deficit, no aphasia, no neglect, she is oriented to self, state, her bday/age. No dysmetria. She is able to stand and walk slowly without assistance. No disabling symptoms. Admit for stroke workup and rehabilitation. Metrics: Last Known Well: 12/08/2019 11:00:00 [employer] Notification Time: 12/08/2019 11:56:32 Arrival Time: 12/08/2019 11:59:00 Stamp Time: 12/08/2019 11:57:00 Time First Login Attempt: 12/08/2019 12:02:53 Video Start Time: 12/08/2019 12:02:53 Symptoms: syncope NIHSS Start Assessment Time: 12/08/2019 12:19:53 Patient is not a candidate for tPA. Patient was not deemed candidate for tPA thrombolytics because of nonfocal exam. CT head was reviewed. Clinical Presentation is not Suggestive of Large Vessel Occlusive Disease ED Physician notified of diagnostic impression and management plan on 12/08/2019 12:33:44 Our recommendations are outlined below. Recommendations: Activate Stroke Protocol Admission/Order Set Stroke/Telemetry Floor Neuro Checks Bedside Swallow Eval DVT Prophylaxis IV Fluids, Normal Saline Head of Bed Below 30 Degrees Euglycemia and Avoid Hyperthermia (PRN Acetaminophen) ativan prn EEG MRI brain Routine Consultation with Inhouse Neurology for Follow up Care Sign Out: Discussed with Emergency Department Provider History of Present Illness: Patient is a 74 year old Female. Patient was brought by EMS for symptoms of syncope Patient was at physical therapy and had a syncopal episode. She has baseline aphasia but today was found to be more aphasic and noted to have left sided weakness after the fall. She did not hit her head but remains very lethargic. She does report headache PMH: hypertension, seizure, no cough, no fevers or chills. BG per EMS 125 on asa, no history of Afib, last seizure was a year ago, switched to zosinimide. Typically they are GTC with tongue biting and loss of bladder control. CT head was reviewed. Last seen normal was within 4.5 hours. There is no history of hemorrhagic complications or intracranial hemorrhage. There is no history of Recent Anticoagulants. There is no history of recent major surgery. There is no history of recent stroke. Examination: BP(160/78), Pulse(63), Blood Glucose(125) 1A: Level of Consciousness - Arouses to minor stimulation + 1 1B: Ask Month and Age - Both Questions Right + 0 1C: Blink Eyes & Squeeze Hands - Performs Both Tasks + 0 2: Test Horizontal Extraocular Movements - Normal + 0 3: Test Visual Carranza - No Visual Loss + 0 4: Test Facial Palsy (Use Grimace if Obtunded) - Normal symmetry + 0 5A: Test Left Arm Motor Drift - No Drift for 10 Seconds + 0 5B: Test Right Arm Motor Drift - No Drift for 10 Seconds + 0 6A: Test Left Leg Motor Drift - Drift, but doesn't hit bed + 1 6B: Test Right Leg Motor Drift - Drift, but doesn't hit bed + 1 7: Test Limb Ataxia (FNF/Heel-Hill) - No Ataxia + 0 8: Test Sensation - Normal; No sensory loss + 0 9: Test Language/Aphasia - Normal; No aphasia + 0 10: Test Dysarthria - Normal + 0 11: Test Extinction/Inattention - No abnormality + 0 NIHSS Score: 3 Patient was informed the Neurology Consult would happen via TeleHealth consult by way of interactive audio and video telecommunications and consented to receiving care in this manner. Due to the immediate potential for life-threatening deterioration due to underlying acute neurologic illness, I spent 35 minutes providing critical care. This time includes time for face to face visit via telemedicine, review of medical records, imaging studies and discussion of findings with providers, the patient and/or family. Dr Gretel Huston [employer] Case [id number] Critical care attestation.: If time is entered above; I have spent that time in minutes in the direct care of this critically ill patient, excluding procedure time. ED Disposition Condition: Stable
[2019-12-08 12:50] LABS: Hematocrit 42.7 % (30.3-42.9); Hemoglobin 14.1 gm/dl (10.1-14.3); Mean Corpuscular HGB Conc 33 % (30-34); Mean Corpuscular Volume 87 fl (79-97); Platelet Count 207 K/mm3 (140-440); Red Blood Count 4.89 M/mm3 (3.65-5.03); Red Cell Distribution Width 14.5 % (13.2-15.2)
[2019-12-08] MEDS ORDERED: levETIRAcetam 1000 MG/NS 0.75% 1,000 MG/100 ML BAG IV ONE (12:53)
[2019-12-08 12:56] LABS: Basophils # (Auto) 0.1 K/mm3 (0.0-0.1); Eosinophils % (Auto) 0.3 % (0.0-4.3); Monocytes # (Auto) 0.5 K/mm3 (0.0-0.8); Monocytes % (Auto) 9.9 % (0.0-7.3)
[2019-12-08 12:57] LABS: Basophils % (Auto) 1.3 % (0.0-1.8); Lymphocytes # (Auto) 1.7 K/mm3 (1.2-5.4); Lymphocytes % (Auto) 33.5 % (13.4-35.0)
[2019-12-08 12:59] LABS: INR 0.98 (0.87-1.13)
[2019-12-08 13:00] LABS: Partial Thromboplastin Time 25.2 Sec. (24.2-36.6); Thrombin Time 16.1 Sec. (15.1-19.6)
[2019-12-08 13:08] LABS: BUN/Creatinine Ratio 22; Blood Urea Nitrogen 26 mg/dL (7-17); Calcium 9.4 mg/dL (8.4-10.2); Hemolysis Index 11
[2019-12-08 13:21] VITALS: BP 169/82
--- NOTE | 2019-12-08 13:44 | Emergency Department Report ---
ED General Adult HPI - General Chief complaint: Neuro Symptoms/Deficit Stated complaint: POSS CVA Time Seen by Provider: 12/08/19 12:12 Source: family, EMS Mode of arrival: Stretcher Limitations: Altered Mental Status - History of Present Illness Initial comments: Patient is a 74-year-old F Banglades[place] female with a past medical history of seizure disorder hypertension and chronic right-sided weakness who is presenting after episode of unresponsiveness. Patient at approximately 11 AM arrived at her physical therapy session. states that she did not eat prior to going to the therapy. Patient is while walking became weak and was in likely someone was behind her who caught her fall and lowered her to the ground. Patient had no tonic-clonic movements but was staring blankly and was unresponsive. Paramedics arrived and states they did witness this behavior. As the patient became more lucid they noted that she would not move her left upper extremity. Patient always was nonverbal until she arrived here in emergency department. Now the patient is here she states she has no pain she is able to follow commands. states there is been no recent fever cough cold congestion. Patient is compliant with her medications. Severity scale (0 -10): 0 - Related Data Home Medications Medication Instructions Recorded Confirmed Last Taken Verapamil HCl 360 tab PO DAILY 10/08/14 12/14/18 08/31/15 Aspirin 81 mg PO DAILY 06/23/18 12/14/18 Unknown Zonisamide 100 mg PO BID 06/23/18 12/14/18 Unknown Citalopram [Celexa] 20 mg PO QDAY 12/14/18 12/14/18 Unknown Dapagliflozin Propanediol [Farxiga] 1 tab PO DAILY 12/14/18 12/14/18 Unknown Telmisartan 40 mg PO DAILY 12/14/18 12/14/18 Unknown Previous Rx's Medication Instructions Recorded Last Taken Type levETIRAcetam [Keppra TAB] 1,000 mg PO BID #60 tablet NS 04/04/14 08/31/15 Rx clonazePAM [KlonoPIN] 0.5 mg PO TID #90 tablet 06/25/18 Unknown Rx AtorvaSTATin [Lipitor] 20 mg PO QHS #30 tab 12/15/18 Unknown Rx Pantoprazole [Protonix] 40 mg PO QDAY #30 tablet 12/15/18 Unknown Rx Dicyclomine [Bentyl] 20 mg PO QID PRN #20 tablet 05/10/19 Unknown Rx Docusate Sodium [Colace] 100 mg PO BID PRN #30 capsule 05/10/19 Unknown Rx Dicyclomine [Bentyl] 10 mg PO QID #10 capsule 05/16/19 Unknown Rx Famotidine [Pepcid] 40 mg PO QHS #10 tablet 05/16/19 Unknown Rx Allergies Allergy/AdvReac Type Severity Reaction Status Date / Time acetaminophen [From Tylenol] Allergy Unknown Unknown Verified 05/10/19 12:21 codeine Allergy Unknown Unknown Verified 05/10/19 12:21 metronidazole Allergy Unknown Unknown Verified 05/10/19 12:21 Penicillins Allergy Unknown Unknown Verified 05/10/19 12:21 ED Review of Systems ROS: Stated complaint: POSS CVA Other details as noted in HPI Comment: All other systems reviewed and negative ED Past Medical Hx - Past Medical History Previous Medical History?: Yes Hx Hypertension: Yes Hx Diabetes: Yes Hx Seizures: Yes Hx Asthma: No Hx COPD: No Hx HIV: No Additional medical history: vagus nerve stimulator. Hearing impaired - Surgical History Past Surgical History?: Yes Additional Surgical History: tubal ligation. Craniotomy. Right Rotator cuff - Social History Smoking Status: Never Smoker Substance Use Type: None - Medications Home Medications: Home Medications Medication Instructions Recorded Confirmed Last Taken Type levETIRAcetam [Keppra TAB] 1,000 mg PO BID #60 tablet NS 04/04/14 12/14/18 08/31/15 Rx Verapamil HCl 360 tab PO DAILY 10/08/14 12/14/18 08/31/15 History Aspirin 81 mg PO DAILY 06/23/18 12/14/18 Unknown History Zonisamide 100 mg PO BID 06/23/18 12/14/18 Unknown History clonazePAM [KlonoPIN] 0.5 mg PO TID #90 tablet 06/25/18 12/14/18 Unknown Rx Citalopram [Celexa] 20 mg PO QDAY 12/14/18 12/14/18 Unknown History Dapagliflozin Propanediol [Farxiga] 1 tab PO DAILY 12/14/18 12/14/18 Unknown History Telmisartan 40 mg PO DAILY 12/14/18 12/14/18 Unknown History AtorvaSTATin [Lipitor] 20 mg PO QHS #30 tab 12/15/18 Unknown Rx Pantoprazole [Protonix] 40 mg PO QDAY #30 tablet 12/15/18 Unknown Rx Dicyclomine [Bentyl] 20 mg PO QID PRN #20 tablet 05/10/19 Unknown Rx Docusate Sodium [Colace] 100 mg PO BID PRN #30 capsule 05/10/19 Unknown Rx Dicyclomine [Bentyl] 10 mg PO QID #10 capsule 05/16/19 Unknown Rx Famotidine [Pepcid] 40 mg PO QHS #10 tablet 05/16/19 Unknown Rx ED Physical Exam - General Limitations: Altered Mental Status General appearance: alert, in no apparent distress - Head Head exam: Present: atraumatic, normocephalic - Eye Eye exam: Present: normal appearance, PERRL, EOMI - ENT ENT exam: Present: mucous membranes moist - Neck Neck exam: Present: normal inspection - Respiratory Respiratory exam: Present: normal lung sounds bilaterally. Absent: respiratory distress, wheezes, rales, rhonchi - Cardiovascular Cardiovascular Exam: Present: regular rate, normal rhythm. Absent: systolic murmur, diastolic murmur, rubs, gallop - GI/Abdominal GI/Abdominal exam: Present: soft, normal bowel sounds. Absent: distended, tenderness, guarding, rebound - Extremities Exam Extremities exam: Present: normal inspection - Back Exam Back exam: Present: normal inspection - Neurological Exam Neurological exam: Present: alert, oriented X3, other - Psychiatric Psychiatric exam: Present: normal affect, normal mood - Skin Skin exam: Present: warm, dry, intact, normal color. Absent: rash - Other Other exam information: Examination: BP(160/78), Pulse(63), Blood Glucose(125) 1A: Level of Consciousness - Arouses to minor stimulation + 1 1B: Ask Month and Age - Both Questions Right + 0 1C: Blink Eyes & Squeeze Hands - Performs Both Tasks + 0 2: Test Horizontal Extraocular Movements - Normal + 0 3: Test Visual Carranza - No Visual Loss + 0 4: Test Facial Palsy (Use Grimace if Obtunded) - Normal symmetry + 0 5A: Test Left Arm Motor Drift - No Drift for 10 Seconds + 0 5B: Test Right Arm Motor Drift - No Drift for 10 Seconds + 0 6A: Test Left Leg Motor Drift - Drift, but doesn't hit bed + 1 6B: Test Right Leg Motor Drift - Drift, but doesn't hit bed + 1 7: Test Limb Ataxia (FNF/Heel-Hill) - No Ataxia + 0 8: Test Sensation - Normal; No sensory loss + 0 9: Test Language/Aphasia - Normal; No aphasia + 0 10: Test Dysarthria - Normal + 0 11: Test Extinction/Inattention - No abnormality + 0 NIHSS Score: 3 ED Course Vital Signs 12/08/19 12/08/19 12:25 13:00 Pulse Rate 63 57 L Respiratory 15 19 Rate Blood Pressure 169/82 O2 Sat by Pulse 99 98 Oximetry ED Medical Decision Making - Lab Data Result diagrams: 12/08/19 12:31 12/08/19 12:31 Lab Results 12/08/19 12/08/19 12/08/19 Range/Units 12:31 12:31 12:31 WBC 5.0 (4.5-11.0) K/mm3 RBC 4.89 (3.65-5.03) M/mm3 Hgb 14.1 (10.1-14.3) gm/dl Hct 42.7 (30.3-42.9) % MCV 87 (79-97) fl MCH 29 (28-32) pg MCHC 33 (30-34) % RDW 14.5 (13.2-15.2) % Plt Count 207 (140-440) K/mm3 Lymph % (Auto) 33.5 (13.4-35.0) % [place] % (Auto) 9.9 H (0.0-7.3) % Eos % (Auto) 0.3 (0.0-4.3) % Baso % (Auto) 1.3 (0.0-1.8) % Lymph # 1.7 (1.2-5.4) K/mm3 [place] # 0.5 (0.0-0.8) K/mm3 Eos # 0.0 (0.0-0.4) K/mm3 Baso # 0.1 (0.0-0.1) K/mm3 Seg Neutrophils % 55.0 (40.0-70.0) % Seg Neutrophils # 2.7 (1.8-7.7) K/mm3 PT 13.1 (12.2-14.9) Sec. INR 0.98 (0.87-1.13) APTT 25.2 (24.2-36.6) Sec. Thrombin Time 16.1 (15.1-19.6) Sec. Sodium 141 (137-145) mmol/L Potassium 4.1 (3.6-5.0) mmol/L Chloride 106.4 (98-107) mmol/L Carbon Dioxide 24 (22-30) mmol/L Anion Gap 15 mmol/L BUN 26 H (7-17) mg/dL Creatinine 1.2 (0.7-1.2) mg/dL Estimated GFR 53 ml/min BUN/Creatinine Ratio 22 % Glucose 109 H (65-100) mg/dL Calcium 9.4 (8.4-10.2) mg/dL Troponin T < 0.010 (0.00-0.029) ng/mL - Radiology Data [facility] [address] [id number] Cat Scan Report Signed Patient: JOVANNI DOWELL MR#: [id number] : 1945 Acct:[id number] Age/Sex: 74 / F ADM Date: 12/08/19 Loc: ED Attending Dr: Ordering Physician: KANG WOO MD Date of Service: 12/08/19 Procedure(s): CT head/brain wo con Accession Number(s): [id number] cc: KANG WOO MD NONENHANCED CT SCAN OF THE BRAIN: INDICATION: MAIN: CODE STROKE CALL [phone]. Weakness on the left side TECHNIQUE: Routine CT head without contrast. Sagittal and coronal reformatted images were obtained. All CT scans at this location are performed using CT dose reduction for ALARA by means of automated exposure control. COMPARISON: CT scan from 06/23/2018 the reviewed. However, I have reviewed, copy of the report. FINDINGS: BRAIN / INTRACRANIAL CONTENTS: Hemorrhage:No intracranial hemorrhage; no subarachnoid hemorrhage Stroke mimics: No subdural or epidural hematoma or space taking lesion Acute/subacute territorial infarction: Holm-white matter interface: No blurring; normal Insular cortex: Normal Basal ganglia: No findings to suggest acute ischemia Wedge shaped parenchymal low density area: Not present Cortical sulci: Not effaced Lacunar infarctions: No acute/subacute lacunar infarction Vasculopathy: Dense middle cerebral artery sign: Not present Internal carotid artery terminus: Normal Basilar artery:Normal Middle cerebral artery branches in the sylvian fissure (Dot sign): Normal Calcified embolus: Not present ASPECT score: Not applicable Chronic lesions: Right temporal craniotomy along with encephalomalacia in the right temporal lobe seen. White matter: Periventricular low attenuation white matter areas seen probably due to chronic small vessel disease. Craniocervical junction:No significant abnormality Orbits:No significant abnormality Paranasal sinuses/mastoids:No significant abnormality Additional findings: None IMPRESSION: No intracerebral hemorrhage or stroke mimics This exam was performed as part of a code stroke protocol. The exam was completed at [facility] on 12/08/2019 11:15 AM. The exam was reviewed at 11:20 AM Central daylight saving time and ER physician was notified at 11:22 AM Central daylight saving time. 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 Per chart review and discussion with ER physician patient has had a history of craniotomy for seizures in the past. Her exam is nonfocal at present time and presentation is likely more consistent with seizure and postictal state rather than CVA. She does not have sensory deficit, no VF deficit, no aphasia, no neglect, she is oriented to self, state, her bday/age. No dysmetria. She is able to stand and walk slowly without assistance. No disabling symptoms. Patient according to her is returned completely to her full baseline. Patient's only deficit was that she was staring and appears to have recovered over 15 to 30-minute period. Patient likely was postictal. Patient has no focal deficits and has been symmetrical with her strength since arrival. TIA is less likely. Patient was loaded with a gram of Keppra. Patient still is compliant with her Zonegran. Patient to be discharged home. Critical care attestation.: If time is entered above; I have spent that time in minutes in the direct care of this critically ill patient, excluding procedure time. ED Disposition Clinical Impression: Petit mal without grand mal seizures Altered mental state Qualifiers: Altered mental status type: disorientation Qualified Code(s): R41.0 - Disor ientation, unspecified Disposition: DC-01 TO HOME OR SELFCARE Is pt being admited?: No Does the pt Need Aspirin: No Condition: Stable Instructions: Recurrent Seizures Adult (ED) Referrals: MARILU DINH MD [Primary Care Provider] - 3-5 Days Time of Disposition: 13:49
== END 2019-12-08 14:21 | disposition home or self-care (01) ==
LOC: ED 11:59
DX: G40.A09 Absence epileptic syndrome, not intractable, without status epilepticus (principal); R41.0 Disorientation, unspecified; I10 Essential (primary) hypertension; E11.9 Type 2 diabetes mellitus without complications; Z88.0 Allergy status to penicillin; Z88.6 Allergy status to analgesic agent; Z88.8 Allergy status to other drugs, medicaments and biological substances; Z98.890 Other specified postprocedural states; Z79.899 Other long term (current) drug therapy; Z98.51 Tubal ligation status
CPT/HCPCS: 36415; 70450; 80048; 82962; 84484; 85025; 85610; 85670; 85730; 93005; 96365; 99285; J1953